=== PATIENT | female | born 1980 | race Hispanic/Latino ===

== ENCOUNTER 2020-10-12 10:14 | Emergency (ER) | payer OTHER ==
[2020-10-12 10:47] LABS: APPEARANCE,URINE CLOUDY (CLEAR); BILIRUBIN,URINE NEGATIVE (NEGATIVE); COLOR,URINE YELLOW (YELLOW); GLUCOSE, URINE (UA) NEGATIVE (NEGATIVE); KETONES,URINE NEGATIVE (NEGATIVE); LEUKOCYTE ESTERASE ,URINE NEGATIVE (NEGATIVE); NITRATE,URINE NEGATIVE (NEGATIVE); OCCULT BLOOD,URINE MODERATE (NEGATIVE); PH,URINE 5.5 (5.0-8.0); PROTEIN,URINE 100 mg/dL (NEGATIVE); UROBILINOGEN,URINE 0.2 mg/dL (0.2-1.0)
[2020-10-12 10:55] LABS: HCG,QUAL RESULT NEGATIVE (NEGATIVE)
[2020-10-12 11:18] LABS: BASOPHILS % (AUTO) 0.7 % (0.0-5.0); EOSINOPHILS % (AUTO) 0.3 % (0.0-8.0); HEMATOCRIT 42.8 % (36-48); MEAN CORPUSCULAR HGB CONC 32.7 g/dL (32.0-36.0); MEAN CORPUSCULAR VOLUME 82.6 fL (79-99); MONOCYTES % (AUTO) 3.3 % (3.0-13.0); NEUTROPHILS % (AUTO) 86.3 % (40.0-77.0); PLATELET COUNT (AUTO) 321 K/uL (130-400); RED BLOOD CELL COUNT(AUTO) 5.18 MIL/uL (4.00-5.50); RED CELL DISTRIBUTION WIDTH 12.9 % (11.0-15.5); WHITE BLOOD COUNT (AUTO) 14.2 K/uL (4.8-10.8)
[2020-10-12 11:27] LABS: POTASSIUM 3.5 mmol/L (3.5-5.1)
[2020-10-12 11:38] LABS: BILIRUBIN,TOTAL 0.8 mg/dL (0.2-1.0)
[2020-10-12 12:04] LABS: BACTERIA,URINE Few /HPF (None Seen)
[2020-10-12 12:05] LABS: MUCUS,URINE Few LPF (None Seen); RBC,URINE 0-1 /HPF (0-1)
[2020-10-12] MEDS ORDERED: MORPHINE 2 MG SYG ONE (12:53)
[2020-10-12] MEDS ORDERED: KETOROLAC 30MG VIAL (30MG/ML) ONE (12:53)
[2020-10-12] MEDS ORDERED: ONDANSETRON 4MG INJ ONE (12:53)
[2020-10-12] MEDS ORDERED: 0.9%NACL 1000ML 1,000 ML IV ONE (12:54)
[2020-10-12] MEDS ORDERED: TAMSULOSIN HCL 0.4 MG CAP.ER.24H ONE (15:06)
== END 2020-10-12 15:24 | disposition home or self-care (01) ==
LOC: EDH 10:14
DX: N20.0 Calculus of kidney (principal); Z88.1 Allergy status to other antibiotic agents
CPT/HCPCS: 36415; 74176; 80053; 81001; 81025; 84702; 85025; 96361; 96374; 96375; 99284; J1885; J2405; J7030

== ENCOUNTER 2021-02-23 03:01 | Emergency (ER) | payer OTHER ==
[~2021-02-23] VITALS: Ht 157.5 cm; Wt 36.3 kg
[2021-02-23 03:52] LABS: BILIRUBIN,URINE Negative (NEGATIVE); COLOR,URINE Dark Yellow (YELLOW); GLUCOSE, URINE (UA) Negative (NEGATIVE); KETONES,URINE Trace mg/dL (NEGATIVE); LEUKOCYTE ESTERASE ,URINE Small (NEGATIVE); NITRATE,URINE Negative (NEGATIVE); OCCULT BLOOD,URINE Large (NEGATIVE); PROTEIN,URINE POS 2+ mg/dL (NEGATIVE)
[2021-02-23 04:08] LABS: APPEARANCE,URINE SLIGHTLY CLOUDY (CLEAR)
[2021-02-23 04:16] LABS: AMORPHOUS SEDIMENT,UR Moderate /LPF (None Seen); BACTERIA,URINE Few /HPF (None Seen); CALCIUM OXALATE CRYSTALS,UR Few /LPF (None Seen); MUCUS,URINE Few LPF (None Seen); SQUAMOUS EPITHELIAL CELL,UR 0-2 /HPF (0-2)
[2021-02-23 04:25] VITALS: BP 120/79
[2021-02-23] MEDS ORDERED: TAMSULOSIN HCL 0.4 MG CAP.ER.24H PO SCH (04:30)
[2021-02-23] MEDS ORDERED: MORPHINE 5 MG/ML VIAL (5MG OR GREATER DOSE) IM ONE (04:30)
[2021-02-23] MEDS ORDERED: LACTATED RINGERS 1000ML 1,000 ML IV ONE (04:30)
[2021-02-23] MEDS ORDERED: ONDANSETRON 4MG INJ IVP ONE (04:30)
[2021-02-23] MEDS ORDERED: MORPHINE 4 MG SYG IV ONE (05:00)
[2021-02-23 06:43] LABS: BASOPHILS % (AUTO) 1.1 % (0.0-5.0); HEMATOCRIT 39.6 % (36-48); LYMPHOCYTES % (AUTO) 26.7 % (21.0-51.0); MEAN CORPUSCULAR HEMOGLOBIN 26.6 pg (27.0-33.0); MEAN CORPUSCULAR HGB CONC 32.6 g/dL (32.0-36.0); MEAN CORPUSCULAR VOLUME 81.6 fL (79-99); MONOCYTES % (AUTO) 5.9 % (3.0-13.0); NEUTROPHILS % (AUTO) 63.9 % (40.0-77.0); PLATELET COUNT (AUTO) 292 K/uL (130-400); RED BLOOD CELL COUNT(AUTO) 4.85 MIL/uL (4.00-5.50); RED CELL DISTRIBUTION WIDTH 14.1 % (11.0-15.5); WHITE BLOOD COUNT (AUTO) 8.3 K/uL (4.8-10.8)
[2021-02-23 07:25] VITALS: BP 125/83
[2021-02-23] MEDS ORDERED: KETOROLAC 30MG VIAL (30MG/ML) ONE (08:18)
[2021-02-23] MEDS ORDERED: KETOROLAC 30MG VIAL (30MG/ML) IV SCH (08:30)
[2021-02-23] MEDS ORDERED: ONDA4TAB10 PO (09:24)
[2021-02-23] MEDS ORDERED: TAMS-1 PO (09:24)
[2021-02-23 09:30] VITALS: BP 123/65
[2021-02-23 10:15] LABS: ALBUMIN 3.1 g/dL (3.5-5.0); BILIRUBIN,TOTAL 0.6 mg/dL (0.2-1.0); POTASSIUM 3.2 mmol/L (3.5-5.1); TOTAL PROTEIN, SERUM 5.9 g/dL (6.0-8.3)
== END 2021-02-23 09:56 | disposition home or self-care (01) ==
LOC: EDH 03:01
DX: N20.1 Calculus of ureter (principal); E44.0 Moderate protein-calorie malnutrition; Z88.2 Allergy status to sulfonamides; Z88.8 Allergy status to other drugs, medicaments and biological substances
CPT/HCPCS: 36415; 74176; 80053; 81001; 81025; 85025; 96372; 96374; 96375; 99285; J1885; J2270 ×2; J2405; J7120